=== PATIENT | female | born 1955 | race Caucasian/White ===

== ENCOUNTER → 2020-03-19 | Day surgery (SDC) | payer OTHER ==
[2020-03-17 15:29] LABS: BASOPHILS # (AUTO) 0.1 (0.0-0.1); BASOPHILS % 1.3 % (0.0-1.0); EOSINOPHILS # (AUTO) 0.4 (0.0-0.4); EOSINOPHILS % 4.6 % (0.0-6.0); HEMATOCRIT 37.1 % (34.2-44.1); HEMOGLOBIN 12.4 g/dL (12.0-16.0); LYMPHOCYTES # (AUTO) 2.2 (1.0-3.2); MEAN CORPUSCULAR HEMOGLOBIN 30.2 pg (28-32); MEAN CORPUSCULAR HGB CONC 33.4 g/dL (31-35); MEAN CORPUSCULAR VOLUME 90.3 fL (81-99); MONOCYTES # (AUTO) 0.5 (0.2-0.8); NEUTROPHILS # (AUTO) 5.2 (2.1-6.9); NEUTROPHILS % 61.9 % (38.7-80.0); PLATELET COUNT 307 x10e3/uL (140-360); RED BLOOD COUNT 4.11 x10e6/uL (3.6-5.1); RED CELL DISTRIBUTION WIDTH 12.8 % (11.7-14.4)
[~2020-03-19] MED LIST: ALBUTEROL0.63 MG/3 NEB; ALBUTEROL2.5 MG/3 M NEB; ATORVASTATIN CA10 MG PO; AZITHROMYCIN500 MG PO; BUPIVACAINE 0.5%/EPI 30 ML SDV INJ ONE; CEFDINIR300 MG PO; CLARITIN PO; DEXAMETHASONE SOD PHOS INJ 4 MG/ML VIAL ONE; FENTANYL CITRATE/PF 100MCG/2 ML INJ ONE; LIDOCAINE HCL 2% LOCAL INJ 5 ML SDV VIAL INJ ONE; METOPROLOL SUCC25 MG PO; MIDAZOLAM HCL 2 MG/2 ML VIAL ONE; MONTELUKAST SOD10 MG PO; ONDANSETRON HCL INJ 2MG/ML 2ML 2 MG/ML VIAL ONE; PREDNISONE20 MG PO; PROAIR HFA INH8.5 GM PO; PROPOFOL IV EMULSION 10 MG/ML 20 ML VIAL ONE; SEVOFLURANE INHAL SOLN 250 ML PEN BTL ONE; SINUS HEADACHE PEG; SYMBICORT 80-10.2 GM INH
[2020-03-19] MEDS: CEFAZOLIN SOD 1 GM/NS 50ML 100 ML IV ONE (11:57)
[2020-03-19] MEDS: ALBUTEROL SULF 0.083% NEB SOLN 3 ML NEB ONE (13:19)
[2020-03-19] MEDS: ACETAMINOPHEN/CODEINE 300MG - 30MG TAB ONE (15:03)
[2020-03-19 15:40] VITALS: BP 146/72
== END | disposition home or self-care (01) ==
LOC: OR 09:34
PROVIDERS: ATTEND Specialist
DX: S83.222A Peripheral tear of medial meniscus, current injury, left knee, initial encounter (principal); M17.12 Unilateral primary osteoarthritis, left knee; M22.42 Chondromalacia patellae, left knee; J44.9 Chronic obstructive pulmonary disease, unspecified; I25.10 Atherosclerotic heart disease of native coronary artery without angina pectoris; R00.1 Bradycardia, unspecified; M54.9 Dorsalgia, unspecified; F41.9 Anxiety disorder, unspecified; X58.XXXA Exposure to other specified factors, initial encounter; Z88.2 Allergy status to sulfonamides; Z01.810 Encounter for preprocedural cardiovascular examination; Z01.812 Encounter for preprocedural laboratory examination; Z01.818 Encounter for other preprocedural examination; Z20.828 Contact with and (suspected) exposure to other viral communicable diseases; Z87.891 Personal history of nicotine dependence
CPT/HCPCS: 36415; 71046; 85025; 93005; 94640; J0690; J1100; J2001; J2250; J2405; J3010; U0002

== ENCOUNTER 2020-03-21 12:07 | Emergency (ER) | payer OTHER ==
[~2020-03-21] VITALS: Ht 165.1 cm; Wt 63.0 kg
[~2020-03-21 12:07] MED LIST changes: -ALBUTEROL2.5 MG/3 M NEB; -AZITHROMYCIN500 MG PO; -BUPIVACAINE 0.5%/EPI 30 ML SDV INJ ONE; -CEFDINIR300 MG PO; -DEXAMETHASONE SOD PHOS INJ 4 MG/ML VIAL ONE; -FENTANYL CITRATE/PF 100MCG/2 ML INJ ONE; -LIDOCAINE HCL 2% LOCAL INJ 5 ML SDV VIAL INJ ONE; -MIDAZOLAM HCL 2 MG/2 ML VIAL ONE; -ONDANSETRON HCL INJ 2MG/ML 2ML 2 MG/ML VIAL ONE; -PREDNISONE20 MG PO; -PROAIR HFA INH8.5 GM PO; -PROPOFOL IV EMULSION 10 MG/ML 20 ML VIAL ONE; -SEVOFLURANE INHAL SOLN 250 ML PEN BTL ONE
[2020-03-21] MEDS ORDERED: ALBUTEROL/IPRATROPIUM 3 ML NEB ONE (12:30)
[2020-03-21] MEDS ORDERED: METHYLPREDNISOLONE SOD SUCC 125 MG/2ML VIAL ONE (12:30)
[2020-03-21] MEDS ORDERED: METHYLPREDNISOLONE SOD SUCC 125 MG/2ML VIAL IV ONE (12:30)
[2020-03-21] MEDS ORDERED: ALBUTEROL/IPRATROPIUM 3 ML NEB NEB ONE (12:30)
[2020-03-21] MEDS ORDERED: IOPAMIDOL 370 MG/ML 200 ML INFUS..BTL INJ ONE (12:48)
[2020-03-21] MEDS ORDERED: SODIUM CHLORIDE 0.9% 50ML 50 ML ONE (12:49)
[2020-03-21] MEDS ORDERED: CEFDINIR300 MG PO (16:14)
[2020-03-21] MEDS ORDERED: PROAIR HFA INH8.5 GM PO (16:14)
[2020-03-21] MEDS ORDERED: AZITHROMYCIN500 MG PO (16:14)
[2020-03-21] MEDS ORDERED: PREDNISONE20 MG PO (16:14)
[2020-03-21] MEDS ORDERED: ALBUTEROL2.5 MG/3 M NEB (16:14)
[2020-03-21 16:26] VITALS: BP 165/77
== END 2020-03-21 16:21 | disposition home or self-care (01) ==
LOC: FSED 12:15
DX: R06.03 Acute respiratory distress (principal); J44.1 Chronic obstructive pulmonary disease with (acute) exacerbation; R91.8 Other nonspecific abnormal finding of lung field; R94.31 Abnormal electrocardiogram [ECG] [EKG]; F17.210 Nicotine dependence, cigarettes, uncomplicated
CPT/HCPCS: 71045; 71260; 80053; 81003; 82553; 84484; 85025; 93005; 99283; J2930; Q9967

== ENCOUNTER → 2021-05-20 | Outpatient (CLI) | payer MEDICARE ==
[~2021-05-20] MED LIST changes: +ALBUTEROL2.5 MG/3 M NEB; +AZITHROMYCIN500 MG PO; +CEFDINIR300 MG PO; +PREDNISONE20 MG PO; +PROAIR HFA INH8.5 GM PO
== END ==
LOC: US 09:39
PROVIDERS: ATTEND Family Medicine
DX: K46.9 Unspecified abdominal hernia without obstruction or gangrene (principal)
CPT/HCPCS: 76705; 76856

== ENCOUNTER → 2021-06-22 | Day surgery (SDC) | payer MEDICARE ==
[2021-06-19 09:15] LABS: BASOPHILS # (AUTO) 0.1 (0.0-0.1); BASOPHILS % 1.3 % (0.0-1.0); EOSINOPHILS # (AUTO) 0.2 (0.0-0.4); EOSINOPHILS % 3.6 % (0.0-6.0); HEMATOCRIT 37.2 % (34.2-44.1); LYMPHOCYTES # (AUTO) 1.4 (1.0-3.2); LYMPHOCYTES % 29.8 % (18.0-39.1); MEAN CORPUSCULAR HEMOGLOBIN 29.6 pg (28-32); MEAN CORPUSCULAR HGB CONC 32.3 g/dL (31-35); MEAN CORPUSCULAR VOLUME 91.9 fL (81-99); MONOCYTES # (AUTO) 0.4 (0.2-0.8); NEUTROPHILS # (AUTO) 2.6 (2.1-6.9); NEUTROPHILS % 56.1 % (38.7-80.0); PLATELET COUNT 260 x10e3/uL (140-360); RED BLOOD COUNT 4.05 x10e6/uL (3.6-5.1)
[2021-06-19 09:35] LABS: ANION GAP 11.9 mmol/L (8-16); CALCIUM 9.1 mg/dL (8.4-10.2); CREATININE, SERUM 1.07 mg/dL (0.57-1.11); POTASSIUM 4.9 mmol/L (3.5-5.1)
[~2021-06-22] MED LIST changes: +ACETAMINOPHEN 1000 MG/100 ML 100 ML IV ONE; +BUPIVACAINE 0.25% 30ML SDV ONE; +DEXAMETHASONE SOD PHOS INJ 4 MG/ML SDV ONE; +DICLOFENAC PO; +EPHEDRINE SULFATE INJ 50 MG/ML VIAL ONE; +FENTANYL CITRATE/PF 100MCG/2 ML INJ ONE; +GABAPENTIN300 MG PO; +GLYCOPYRROLATE INJ 0.2 MG/ML VIAL ONE; +HYDROCODONE/APAP 7.5MG-325MG 1 EA TAB ONE; +KETOROLAC TROMETHAMINE 30 MG/ML VIAL ONE; +LIDOCAINE HCL (LTA) 4 ML SOLN ONE; +LIDOCAINE HCL 2% LOCAL INJ 5 ML SDV VIAL INJ ONE; +MIDAZOLAM HCL 2 MG/2 ML VIAL ONE; +NEOSTIGMINE 1 MG/ML 10ML VIAL ONE; +ONDANSETRON HCL INJ 2MG/ML 2ML 2 MG/ML VIAL ONE; +POVIDONE IODINE 0.05% 0.05 % ML PO ONE; +PROPOFOL IV EMULSION 10 MG/ML 20 ML VIAL ONE; +ROCURONIUM BROMIDE 10 MG/ML 5ML VIAL IV ONE; +SEVOFLURANE INHAL SOLN 250 ML PEN BTL ONE; +TRELEGY ELLIPT1 EACH INH; +ULTRAM 50MG50 MG PO
[2021-06-22 14:10] VITALS: BP 159/74
== END | disposition home or self-care (01) ==
LOC: OR 08:31
PROVIDERS: ATTEND Surgery
DX: K43.6 Other and unspecified ventral hernia with obstruction, without gangrene (principal); G89.29 Other chronic pain; J44.9 Chronic obstructive pulmonary disease, unspecified; K21.9 Gastro-esophageal reflux disease without esophagitis; I25.2 Old myocardial infarction; I10 Essential (primary) hypertension; Z88.2 Allergy status to sulfonamides; Z01.810 Encounter for preprocedural cardiovascular examination; Z01.812 Encounter for preprocedural laboratory examination; Z01.818 Encounter for other preprocedural examination; Z20.822 Contact with and (suspected) exposure to COVID-19; Z87.891 Personal history of nicotine dependence
CPT/HCPCS: 36415; 49561; 49568; 71046; 80048; 85025; 93005; C1781; J0131; J1100; J1885; J2001; J2250; J2405; J2704; J2710; J3010; U0002